=== PATIENT | female | born 1945 | race Two or more races ===

== ENCOUNTER 2022-02-19 14:43 | Inpatient (IN) | payer OTHER ==
[~2022-02-19] VITALS: Ht 154.9 cm; Wt 62.6 kg
[2022-02-19] MEDS ORDERED: AMLODIPINE BESYL5 MG (15:05)
[2022-02-19] MEDS ORDERED: CHILDREN'S ASPI81 MG (15:06)
[2022-02-19] MEDS ORDERED: RANEXA500 MG (15:07)
[2022-02-19] MEDS ORDERED: ROSADAN45 G1 (15:07)
== END 2022-02-23 22:59 | disposition home or self-care (01) | DRG 281 ==
LOC: ER 14:43 → SEC-K 21:51 → SURG 21:51
PROVIDERS: ADMIT Internal Medicine; ATTEND Internal Medicine
PROC: BW28ZZZ Computerized Tomography (CT Scan) of Head (ICD-10-PCS; principal; 2022-02-19)
PROC: B348ZZZ Ultrasonography of Bilateral Internal Carotid Arteries (ICD-10-PCS; 2022-02-19)
PROC: B345ZZZ Ultrasonography of Bilateral Common Carotid Arteries (ICD-10-PCS; 2022-02-19)
PROC: B030ZZZ Magnetic Resonance Imaging (MRI) of Brain (ICD-10-PCS; 2022-02-20)
PROC: B24BZZZ Ultrasonography of Heart with Aorta (ICD-10-PCS; 2022-02-20)
DX: I21.4 Non-ST elevation (NSTEMI) myocardial infarction (principal); I16.9 Hypertensive crisis, unspecified; R55 Syncope and collapse; R06.02 Shortness of breath; I25.10 Atherosclerotic heart disease of native coronary artery without angina pectoris; E11.9 Type 2 diabetes mellitus without complications; Z79.4 Long term (current) use of insulin; I10 Essential (primary) hypertension; Z20.822 Contact with and (suspected) exposure to COVID-19
CPT/HCPCS: 70544